=== PATIENT | male | born 1985 | race Hispanic/Latino ===

== ENCOUNTER 2021-03-22 10:17 | Emergency (ER) | payer OTHER ==
[~2021-03-22] VITALS: Ht 162.6 cm; Wt 113.4 kg
[2021-03-22 10:24] VITALS: BP 144/92
[2021-03-22] MEDS ORDERED: ASPIRIN 325MG EC TAB PO ONE (12:30)
[2021-03-22] MEDS ORDERED: DEXAMETHASONE SOD PHOSPHATE 4 MG/ML 1ML VIAL IVP SCH (12:30)
[2021-03-22] MEDS ORDERED: AZITHROMYCIN 250 MG TABLET PO ONE (12:30)
[2021-03-22] MEDS ORDERED: METH4TAB3 PO (12:35)
[2021-03-22] MEDS ORDERED: AZIT500T PO (12:35)
[2021-03-22 13:28] VITALS: BP 131/83
== END 2021-03-22 13:52 | disposition home or self-care (01) ==
LOC: EDH 10:17
DX: U07.1 COVID-19 (principal); J12.82 Pneumonia due to coronavirus disease 2019
CPT/HCPCS: 71045; 96374; 99283; J1100